=== PATIENT | female | born 1970 | race Hispanic/Latino ===

== ENCOUNTER 2016-12-29 09:36 | Day surgery (SDC) | payer MEDICAID ==
[2016-12-23 10:06] VITALS: BMI 25.1
[2016-12-29] MEDS ORDERED: ceFAZolin IV 2 gm in Dextrose 0 GM/0 ML BAG IVPB ONE (11:44)
[2016-12-29] MEDS ORDERED: Bupivacaine HCl 0.5% PF (10 ml) Inj ONE (11:44)
[2016-12-29] MEDS ORDERED: Bacitracin Ointment 30 GM TUBE ONE (11:48)
[2016-12-29] MEDS ORDERED: Lactated Ringer's 1,000 ML IV ONE ×2 (11:55→13:23)
[2016-12-29] MEDS ORDERED: Midazolam 2 MG/2 ML VIAL ONE ×3 (12:04→13:44)
[2016-12-29] MEDS ORDERED: Propofol 10 mg/ml Inj (20 ML) ONE (12:04)
[2016-12-29] MEDS ORDERED: HYDROmorphone 1 mg/ml ISec ONE (13:24)
[2016-12-29] MEDS ORDERED: HYDROmorphone 1 mg/ml ISec IVP STA (13:29)
[2016-12-29] MEDS ORDERED: HYDROmorphone 1 mg/ml ISec IVP PRN (13:30)
[2016-12-29] MEDS ORDERED: Lactated Ringer's 1,000 ML IV SCH (13:30)
[2016-12-29] MEDS ORDERED: Midazolam 2 MG/2 ML VIAL IVP PRN (13:30)
[2016-12-29] MEDS ORDERED: Bupivacaine HCl 0.25% PF (10 ml) Inj ONE ×2 (13:38)
[2016-12-29] MEDS ORDERED: Oxycodone/Acetaminophen 5/325 mg Tab PO PRN (14:58)
--- NOTE | 2016-12-29 15:35 | PCM.SURG1 ---
Surgeon's Initial Post Op Note - Surgeon's Notes Surgeon: Britney Calculation Reviewer: SRIKANTH Christiansen Type of Anesthesia: General Endo Anesthesia Administered By: Dr Smith Pre-Operative Diagnosis: distal 1/3 tibia fx- s/p closed treatment fibula fx Operative Findings: as above. interlocking screws distal 1/3 tibia. fx midshaft fibula Post-Operative Diagnosis: same Operation Performed: Hardware Removal (deep) tibia Left. curettage and bone graft screw holes (distal 1/3 tibia). excision skin/subcutaneous tissue. intrarticular injection Specimen/Specimens Removed: screwsx2/ scar tissue/skin/subcutaneous tissue Estimated Blood Loss: EBL {In ML}: 5 Blood Products Given: N/A Drains Used: No Drains Post-Op Condition: Good Date of Surgery/Procedure: 12/29/16 Time of Surgery/Procedure: 12:25 (time in room/anaesthesia induction time 11:55)
--- NOTE | 2016-12-29 15:41 | PCM.ANESB2 ---
Popliteal Nerve Block - Popliteal Nerve Block Date of Procedure: 12/29/16 Anesthesiologist: Destin Pre-Procedure Diagnosis: s/p left ankle hardware removal Post-Procedure Diagnosis: same Procedure Performed: Popliteal Nerve Block Left - Procedure Popliteal Nerve Block: This procedure was explained to the patient that it is for post-operative pain management. Consent was obtained after a thorough discussion with the patient regarding the benefits and possible complications of local anesthetic block of the sciatic nerve at the popliteal level. The patient lying supine with monitors. Time-out was held with the circulating nurse to confirm the correct surgery and the appropriate block. After applying oxygen by nasal cannula, patient's operative leg was gently raised and supported and the groove in between the biceps femoris and vastus lateralis muscles was carefully palpated. The skin approximately 8cm above the popliteal crease was then marked. The ultrasound transducer was then applied to the posterior thigh approximately 8cm above the popliteal crease in the transverse plane and the sciatic nerve before its division was visualized lateral to the popliteal artery and in between the bicep femoris and semimembranosus/semitendinosus muscles. After identification, the lateral portion of the thigh was prepped with Chloraprep and Lidocaine 1% was injected subcutaneously for topical anesthesia. At this point, a # 21 gauge Stimuplex insulated 4 inch needle was inserted into pre-marked area and advanced in a perpendicular direction. The needle was inserted above the ultrasound transducer in-plane towards the sciatic nerve in a [id number] direction. Needle advancement was performed carefully under direct ultrasound visualization. Nerve stimulator was used and dorsiflexion of the left foot was elicited at a current of 0.5MA. After repeated negative aspiration, 5cc of 0.25%Bupivacaine was injected and this was followed with 25cc of 0.25% Bupivacaine. Under ultrasound guidance the local anesthetics were observed tenting the epidural sheath and surrounding the roots of the sciatic nerve. The needle was removed intact and sterile dressing was applied. The patient tolerated the popliteal nerve block well with stable vital signs.
[2016-12-29 15:51] VITALS: BP 127/70; PULSE 72; RESP 18; TEMP 98; O2SAT 100
--- NOTE | 2016-12-29 15:56 | RAD ---
PROCEDURE: Radiographs of the left tibia and fibula. HISTORY: s/p hardware removal in pacu COMPARISON: None available. TECHNIQUE: Frontal and lateral views obtained. FINDINGS: BONES: An oblique and butterfly fragment of the mid to distal fibula nondisplaced is noted. Tibial intramedullary germaine and proximal horizontal screws are present. A posterior tibial mid diaphyseal cortical fracture line is noted. Distal horizontal screws are not seen in profile. Here residual screw tracts here are apparent JOINT SPACES: Unremarkable. OTHER FINDINGS: Subcutaneous reticulated edema lower extremity most pronounced mid to distal lower leg aspect IMPRESSION: Tibial and fibular fractures as above. Intramedullary germaine screws visualize as detailed above. Fluoroscopic images performed on the same day showed distal horizontal screws present between that exam and this image distal screws probably have been removed.
--- NOTE | 2016-12-30 12:50 | RAD ---
PROCEDURE: Fluoroscopy up to 1 hr. HISTORY: LEFT LOW EXT HW REMOVAL COMPARISON: None TECHNIQUE: Standard protocol for this study/examination. FINDINGS: Submitted images from the current procedure: 10.0 IMPRESSION: Total fluoroscopic time (continuous mode) utilized during the procedure: 21.1 seconds.
--- NOTE | 2017-01-10 19:03 | OP ---
PROCEDURE DATE: 12/29/2016 Second dictation PREOPERATIVE DIAGNOSIS: Status post ORIF with interlocking intramedullary nailing of the distal 1/3 tibia fracture and closed tibia-fibula fracture. POSTOPERATIVE FINDINGS: Interlocking screws of the distal 1/3 of the tibia, fracture of the midshaft fibula which is healing. OPERATIVE FINDINGS: Interlocking screws of the distal 1/3 of the tibia, fracture of the midshaft fib christina which is healing. POSTOPERATIVE DIAGNOSIS: Interlocking screws of the distal 1/3 of the tibia, fracture of the midshaf t fibula which is healing. PROCEDURE: 1. Hardware removal, deep left tibia. 2. Curettage and bone grafting screw holes distal 1/3 tibia, excision skin and subcutaneous tissue, intra-articular injection, application of compression dressing. SURGEON: Paul Tan MD LAUNDRY ROUTE DRIVER: Crissy Henson, Certified Registered Nursing Marketing Campaign Analyst. ANESTHESIA: General endotracheal anesthesia, Dr. Mansoor Smith. COMPLICATIONS: No complications. DRAINS: No drains. SPECIMENS: The 2 screws. BLOOD PRODUCTS GIVEN: Not applicable. BLOOD LOSS: Approximately 10 mL. DRAINGS: No drains. POSTOPERATIVE CONDITION: Stable. DATE OF SURGERY: 12/29/2016 SECOND DICTATION TIME OF SURGERY: Time in the room 11:55 a.m. Operative time: 12:25. OPERATIVE PROCEDURE: After having identified the above captioned individual, the patient, after havi ng obtained informed consent, after thoroughly discussing the pros, cons, risks and benefits of the s urgical approach, the concept of hardware removal deep from the distal third of the tibia, the concep t of dynamization of the fracture is discussed. The possibility of mechanical failure, infection, th romboembolic disease, secondary or tertiary surgery is discussed. The patient can no longer stand th e discomfort and wished the surgery to be accomplished. The evaluation mid shaft fibula will be acco mplished as well. After having obtained informed consent in the above fashion, after having identifi ed side, site and procedure and a critical pause/timeout, after the satisfactory induction of the ane sthetic by Dr. Sesar Smith, the above captioned individual, the patient, in the supine position with a ll bony prominences well padded, the left lower extremity was prepped and free draped in the usual fa shion for lower extremity surgery. The tourniquet had been applied, but is not yet inflated. Under the surgeon's direction, the fluoroscope was positioned, video images are generated, therapeutic deci sions are made there from. The healing distal third tibia fracture is identified as is the fibular f racture. After sterilely prepping and draping, the left lower extremity is exsanguinated using a 6-i prh Esmarch bandage. The tourniquet which had been applied is inflated to 350 mmHg. Under the surge on's direction, the fluoroscope was positioned, video images are generated, therapeutic decisions are made there from. The location of the interlocking screws is identified. An incision approximately 2.5 cm in extent is accomplished superficial. The skin incision is carried down through the skin and subcutaneous tissue. At this point in time, the screws are identified each sequential screw is iden tified and removed. The screw hole is identified, is curettaged and allograft bone grafting is accom plished to bone graft the screw hole. The blocking screw is placed having been placed on the anterio r aspect of the tibia. It is removed as well. The 2 screws were removed. The wound is thoroughly i rrigated. Closure is in layers, 0 Vicryl, 2-0 Vicryl, darwin for skin. At this point in time, unde r the surgeon's direction, the fluoroscope was positioned, video images are generated, therapeutic de cisions are made there from. There is found to be a healing fibula fracture in acceptable position. Deepak Junior compression dressing is applied. Paul Tan MD cc: [id number] TT: 01/10/2017 19:03:27 fl
== END 2016-12-29 15:30 | disposition home or self-care (01) ==
LOC: C.SDS 09:36
PROVIDERS: ATTEND Orthopaedic Surgery
DX: T84.89XA Other specified complication of internal orthopedic prosthetic devices, implants and grafts, initial encounter (principal); S82.892S Other fracture of left lower leg, sequela; G89.18 Other acute postprocedural pain; X58.XXXS Exposure to other specified factors, sequela
CPT/HCPCS: 20680; 73590; 88300; 88305; 97116; C1713; G8978; G8979; G8980; J1170; J2250; J2704; J3010; J7120